=== PATIENT | male | born 1945 | race Hispanic/Latino ===

== ENCOUNTER 2019-10-28 10:28 | Inpatient (IN) | payer OTHER ==
[~2019-10-28] VITALS: Ht 172.7 cm; Wt 85.7 kg
[2019-10-28 11:06] LABS: BASOPHILS % (AUTO) 0.2 % (0.0-5.0); EOSINOPHILS % (AUTO) 0.9 % (0.0-8.0); LYMPHOCYTES % (AUTO) 10.7 % (21.0-51.0); MEAN CORPUSCULAR HEMOGLOBIN 33.3 pg (27.0-33.0); MEAN CORPUSCULAR HGB CONC 32.2 g/dL (32.0-36.0); MEAN CORPUSCULAR VOLUME 103.6 fL (79-99); MONOCYTES % (AUTO) 2.9 % (3.0-13.0); NEUTROPHILS % (AUTO) 84.8 % (40.0-77.0); PLATELET COUNT (AUTO) 63 K/uL (130-400); RED BLOOD CELL COUNT(AUTO) 2.22 MIL/uL (4.50-6.20); RED CELL DISTRIBUTION WIDTH 15.3 % (11.0-15.5); WHITE BLOOD COUNT (AUTO) 11.8 K/uL (4.8-10.8)
[2019-10-28] MEDS ORDERED: ONDANSETRON HCL 4 MG/2 ML VIAL ONE (11:36)
[2019-10-28 11:46] LABS: B-TYPE NATRIURETIC PEPTIDE 970 pg/mL (0-100)
[2019-10-28 11:51] LABS: ABG BASE EXCESS -3.2 mmol/L (-2.0-3.0); ABG HCO3 21.7 mmol/L (21.0-28.0); ABG OXYGEN SATURATION 93.3 % (95.0-99.0); ABG PCO2 39 mmHg (35-48)
[2019-10-28 12:01] LABS: INR 1.12 (0.85-1.15); PARTIAL THROMBOPLASTIN TIME 32.4 SEC (26.3-35.5)
[2019-10-28] MEDS ORDERED: NOREPINEPHRINE 4MG/NS 250ML 250 ML IV ONE ×5 (12:16→21:44)
[2019-10-28] MEDS ORDERED: MIDAZOLAM HCL 1 MG/ML 2ML VIAL ONE (12:32)
[2019-10-28 12:39] LABS: ALBUMIN 1.8 g/dL (3.5-5.0); BILIRUBIN,DIRECT 0.3 mg/dL (0.0-0.3); BILIRUBIN,TOTAL 0.5 mg/dL (0.2-1.0); CREATININE 1.6 mg/dL (0.5-1.5); POTASSIUM 5.9 mmol/L (3.5-5.1); TOTAL PROTEIN, SERUM 7.2 g/dL (6.0-8.3)
[2019-10-28 13:13] LABS: MAGNESIUM 2.8 mg/dL (1.80-2.40)
[2019-10-28] MEDS ORDERED: ACETAMINOPHEN 325 MG TAB PO PRN ×2 (17:30)
[2019-10-28] MEDS ORDERED: ONDANSETRON HCL 4 MG/2 ML VIAL IV PRN (17:30)
[2019-10-28] MEDS: AZITHROMYCIN 500MG+NS 250ML 250 ML IV SCH (17:30)
[2019-10-28] MEDS: CEFTRIAXONE SODIUM 1 GM IV SCH (17:30)
[2019-10-28] MEDS ORDERED: SODIUM POLYSTYRENE SULFONATE 15 GM/60 ML ML GT SCH (18:00)
[2019-10-28] MEDS: HYDROCORTISONE SOD SUCCINATE 100 MG/2 ML VIAL IV SCH (18:30)
[2019-10-28] MEDS: MIDODRINE HCL 5 MG TABLET PO SCH (18:30)
[2019-10-28] MEDS ORDERED: LACTATED RINGERS 1000ML IV SCH (18:30)
[2019-10-28] MEDS ORDERED: HYDROCORTISONE SOD SUCCINATE 100 MG/2 ML VIAL ONE (20:14)
[2019-10-28] MEDS ORDERED: ZOSYN 3.375GM+NS 50ML 50 ML IV SCH (21:00)
[2019-10-28 21:04] LABS: ALBUMIN 1.6 g/dL (3.5-5.0); BILIRUBIN,TOTAL 0.6 mg/dL (0.2-1.0); MAGNESIUM 2.6 mg/dL (1.80-2.40); POTASSIUM 5.8 mmol/L (3.5-5.1); THYROID STIMULATING HORMONE 7.11 uIU/mL (0.36-3.74); TOTAL PROTEIN, SERUM 7.1 g/dL (6.0-8.3)
[2019-10-28] MEDS ORDERED: FAMOTIDINE/PF 20 MG/2 ML VIAL IV ONE (22:40)
[2019-10-28] MEDS ORDERED: MEROPENEM 500 MG VIAL ONE (22:40)
[2019-10-28] MEDS ORDERED: MEROPENEM 1 GM VIAL IVP SCH (23:00)
[2019-10-29] VITALS (28 sets, daily range): BP systolic 86–150; BP diastolic 37–91
[2019-10-29] MEDS: HYDROCORTISONE SOD SUCCINATE 100 MG/2 ML VIAL IV SCH ×4 (00:30→18:46)
--- NOTE | 2019-10-29 02:20 | NUR ---
DR LIRA ORDERS TO HOLD NASAL TRACHEAL SUCTIONING UNTIL PATIENT STABILIZES. Addendum: 10/29/19 at 0455 by THOMAS VALDEZ RTSLT Amended: Links added.
[2019-10-29] MEDS: MIDODRINE HCL 5 MG TABLET PO SCH ×3 (02:30→18:30)
[2019-10-29 02:31] LABS: ABG BASE EXCESS -21.2 mmol/L (-2.0-3.0); ABG HCO3 11.4 mmol/L (21.0-28.0); ABG OXYGEN SATURATION 83.2 % (95.0-99.0); ABG PCO2 54 mmHg (35-48)
[2019-10-29] MEDS ORDERED: SODIUM BICARB 50MEQ 50ML VIAL ONE ×2 (02:38→07:20)
[2019-10-29 02:45] LABS: CREATININE 2.5 mg/dL (0.5-1.5); MAGNESIUM 2.6 mg/dL (1.80-2.40)
[2019-10-29 02:58] LABS: POTASSIUM 6.9 mmol/L (3.5-5.1); TROPONIN I 0.23 ng/mL (0.00-0.06)
[2019-10-29] MEDS ORDERED: DEXTROSE 50%-WATER 50 ML DISP.SYRIN IV ONE ×2 (03:01→07:18)
[2019-10-29] MEDS ORDERED: INSULIN HUMULIN R 100 UNIT/ML 3ML ONE ×2 (03:02→07:19)
[2019-10-29] MEDS: CALCIUM CHLORIDE 100 MG/ML 10 ML SYG IVP SCH (03:15)
[2019-10-29] MEDS: DEXTROSE 50%-WATER 25 GM/50 ML VIAL IV SCH (03:15)
[2019-10-29] MEDS: INSULIN HUMULIN R 100 UNIT/ML 3ML SQ SCH (03:15)
[2019-10-29] MEDS ORDERED: NOREPINEPHRINE BITARTRATE 1 MG/1 ML ML IV ONE ×2 (05:03→13:04)
[2019-10-29] MEDS ORDERED: SODIUM CHLORIDE 0.9% 250 ML IV ONE ×3 (05:04→19:58)
[2019-10-29] MEDS ORDERED: ZOSYN 3.375GM+NS 50ML 50 ML IV ONE (05:46)
[2019-10-29 05:50] LABS: ABG BASE EXCESS -12.8 mmol/L (-2.0-3.0); ABG HCO3 14.6 mmol/L (21.0-28.0); ABG OXYGEN SATURATION 98.8 % (95.0-99.0); ABG PCO2 39 mmHg (35-48)
[2019-10-29 06:23] LABS: BASOPHILS % (AUTO) 0.1 % (0.0-5.0); LYMPHOCYTES % (AUTO) 8.2 % (21.0-51.0); MEAN CORPUSCULAR HEMOGLOBIN 34.1 pg (27.0-33.0); MEAN CORPUSCULAR HGB CONC 30.4 g/dL (32.0-36.0); MEAN CORPUSCULAR VOLUME 112.1 fL (79-99); MONOCYTES % (AUTO) 7.1 % (3.0-13.0); NEUTROPHILS % (AUTO) 83.6 % (40.0-77.0); NUCLEATED RED BLOOD CELLS 0.4 % (0.0-0.19); PLATELET COUNT (AUTO) 115 K/uL (130-400); RED BLOOD CELL COUNT(AUTO) 1.82 MIL/uL (4.50-6.20); RED CELL DISTRIBUTION WIDTH 16.2 % (11.0-15.5); WHITE BLOOD COUNT (AUTO) 15.2 K/uL (4.8-10.8)
[2019-10-29 06:24] LABS: HEMATOCRIT 20.4 % (42-54)
[2019-10-29 06:52] LABS: ALBUMIN 1.5 g/dL (3.5-5.0); BILIRUBIN,TOTAL 0.6 mg/dL (0.2-1.0); CREATININE 2.7 mg/dL (0.5-1.5); THYROID STIMULATING HORMONE 8.04 uIU/mL (0.36-3.74); TOTAL PROTEIN, SERUM 7.2 g/dL (6.0-8.3)
[2019-10-29 06:54] LABS: POTASSIUM 6.8 mmol/L (3.5-5.1)
[2019-10-29 07:34] LABS: CRP QUANTITATIVE 222.5 mg/L (0.00-9.0)
[2019-10-29] MEDS ORDERED: HYDROCORTISONE SOD SUCCINATE 100 MG/2 ML VIAL ONE (08:57)
[2019-10-29] MEDS ORDERED: SODIUM ZIRCONIUM CYCLOSILICATE 10 GM POWD.PACK PO SCH (09:00)
[2019-10-29] MEDS: FAMOTIDINE/PF 20 MG/2 ML VIAL IV SCH (09:00)
[2019-10-29] MEDS: ZOSYN 3.375GM+NS 50ML 50 ML IV SCH ×2 (09:00→20:08)
[2019-10-29] MEDS ORDERED: FUROSEMIDE 10 MG/ML 4ML VIAL IV SCH (09:15)
[2019-10-29] MEDS ORDERED: FAMOTIDINE/PF 20 MG/2 ML VIAL IV ONE (10:02)
[2019-10-29] MEDS ORDERED: LIDOCAINE HCL 1% MDV 50ML VIAL ONE (12:30)
--- NOTE | 2019-10-29 12:54 | NUR ---
RD NOTIFICATION Tube Feeding Recommendation: Nepro initiated at 15mls/hr. Goal rate: 45mls/hr Recommend Flush 100ml Q6hrs. Recommendations faxed to ext [phone], Rail Project Engineer notified. NUTRITION NOTE: Pt admitted with AMS, Bradycardia. Pending COVID test result per EMR. Elevated WBC, elevated serum potassium. S/p Peg placement. S/p Hemodialysis per EMR. Recommend 1000mg Vitamin C (IV Equivalent) Daily, as medically feasible. RD to continue to monitor. Please notify as additional nutrition concerns arise. Thank you.
--- NOTE | 2019-10-29 13:00 | NUR ---
CALL TO SPOUSE'S PHONE, SON & SPOUSE TOGETHER ON CONFERENCE CALL. BOTH STATE THAT PATIENT HAD A STROKE AT THE BEGINNING OF THE YEAR, AND WAS SENT TO LIVE AT [facility]. HAS BEEN BED BOUND AND APHASIC EVER SINCE. HAS A PEG, NOT ABLE TO MAKE HIS NEEDS KNOWN. VERBALIZES UNDERSTANDING THAT PATIENT IS VERY VERY ILL, STATES HE IS A FULL CODE & THEY ARE STARTING HD TODAY. DC PLAN BACK TO [facility] WHEN STABLE. Addendum: 10/29/19 at 1522 by GABBY AUGUST RN CM Amended: Links added.
--- NOTE | 2019-10-29 15:00 | NUR ---
RECEIVED PT FROM SOURCING MANAGER. PT ARRIVED TO UNIT VIA BED ACCOMPANIED BY RT AND SOURCING MANAGER NURSE. PT HOOKED UP TO ICU MONITORS. PT NOTED TO BY STABLE AT THIS TIME. WILL CONT TO MONITOR.
[2019-10-29] MEDS ORDERED: PHARMACY COMMUNICATION MISC SCH (15:15)
[2019-10-29] MEDS ORDERED: MIDAZOLAM 50MG-0.9% NS 50ML 50 ML BAG IV SCH (15:30)
[2019-10-29] MEDS ORDERED: MIDAZOLAM 50MG-0.9% NS 50ML 50 ML IV SCH (16:15)
[2019-10-29] MEDS: CEFTRIAXONE SODIUM 1 GM IV SCH (16:57)
[2019-10-29] MEDS: AZITHROMYCIN 500MG+NS 250ML 250 ML IV SCH (16:58)
[2019-10-29] MEDS: PHARMACY COMMUNICATION MISC SCH ×2 (19:15→22:15)
[2019-10-29] MEDS ORDERED: NOREPINEPHRINE 4MG/NS 250ML 250 ML IV ONE (19:56)
[2019-10-29] MEDS: LACTULOSE 20 GM/30 ML UDCUP PO SCH (20:08)
[2019-10-29] MEDS ORDERED: ACETAMINOPHEN ELIXIR 650 MG/20.3 ML UDCUP PEG PRN (22:00)
[2019-10-30] VITALS (71 sets, daily range): BP systolic 105–159; BP diastolic 49–89
[2019-10-30] MEDS: MIDODRINE HCL 5 MG TABLET PO SCH ×2 (01:26→10:15)
[2019-10-30] MEDS: HYDROCORTISONE SOD SUCCINATE 100 MG/2 ML VIAL IV SCH ×4 (01:26→17:57)
[2019-10-30] MEDS ORDERED: PETR113O TP (02:34)
[2019-10-30] MEDS ORDERED: NYST5ORA7 PO (02:34)
[2019-10-30] MEDS: INSULIN HUMULIN R 100 UNIT/ML 3ML SQ SCH (03:15)
[2019-10-30] MEDS: DEXTROSE 50%-WATER 25 GM/50 ML VIAL IV SCH (03:15)
[2019-10-30] MEDS: CALCIUM CHLORIDE 100 MG/ML 10 ML SYG IVP SCH (03:15)
[2019-10-30] MEDS ORDERED: BISA10SU11 RC (03:26)
[2019-10-30] MEDS ORDERED: LACT10SO9 PO (03:26)
[2019-10-30] MEDS ORDERED: CYAN250014 PO (03:26)
[2019-10-30] MEDS ORDERED: FURO20TA4 PO (03:26)
[2019-10-30] MEDS ORDERED: DOCU60SY6 PO (03:26)
[2019-10-30] MEDS ORDERED: AMLO10TA7 PO (03:26)
[2019-10-30] MEDS ORDERED: LEVE500V8 IV (03:26)
[2019-10-30] MEDS ORDERED: LISI10TA7 PO (03:26)
[2019-10-30] MEDS ORDERED: VASOPRESSIN 20 UNITS/ML 1ML VIAL ONE (03:30)
[2019-10-30] MEDS ORDERED: SODIUM CHLORIDE 0.9% 100 ML IV ONE (03:36)
[2019-10-30 03:56] LABS: BASOPHILS % (AUTO) 0.3 % (0.0-5.0); EOSINOPHILS % (AUTO) 0.3 % (0.0-8.0); HEMATOCRIT 25.5 % (42-54); LYMPHOCYTES % (AUTO) 10.3 % (21.0-51.0); MEAN CORPUSCULAR HEMOGLOBIN 31.7 pg (27.0-33.0); MEAN CORPUSCULAR HGB CONC 32.2 g/dL (32.0-36.0); MEAN CORPUSCULAR VOLUME 98.5 fL (79-99); NEUTROPHILS % (AUTO) 84.6 % (40.0-77.0); NUCLEATED RED BLOOD CELLS 0.3 % (0.0-0.19); PLATELET COUNT (AUTO) 85 K/uL (130-400); RED BLOOD CELL COUNT(AUTO) 2.59 MIL/uL (4.50-6.20); RED CELL DISTRIBUTION WIDTH 19.9 % (11.0-15.5); WHITE BLOOD COUNT (AUTO) 11.7 K/uL (4.8-10.8)
[2019-10-30] MEDS: PHARMACY COMMUNICATION MISC SCH ×8 (04:15→22:15)
[2019-10-30 04:31] LABS: ALBUMIN 1.6 g/dL (3.5-5.0); BILIRUBIN,TOTAL 0.9 mg/dL (0.2-1.0); CREATININE 2.7 mg/dL (0.5-1.5); MAGNESIUM 2.5 mg/dL (1.80-2.40); POTASSIUM 4.4 mmol/L (3.5-5.1); TOTAL PROTEIN, SERUM 7.2 g/dL (6.0-8.3)
[2019-10-30] MEDS: VASOPRESSIN 20 UNITS in SODIUM CHLORIDE 0.9% 100 ML IV SCH ×2 (05:06→12:55)
[2019-10-30 05:18] LABS: % IRON SATURATION 28.6 % (30-44)
[2019-10-30] MEDS ORDERED: MEROPENEM 1 GM VIAL IVP SCH (08:00)
[2019-10-30] MEDS: FAMOTIDINE/PF 20 MG/2 ML VIAL IV SCH (08:12)
[2019-10-30] MEDS: LACTULOSE 20 GM/30 ML UDCUP PO SCH ×2 (08:12→20:59)
[2019-10-30] MEDS: ZOSYN 3.375GM+NS 50ML 50 ML IV SCH (08:13)
[2019-10-30 08:24] LABS: CRP QUANTITATIVE 282.8 mg/L (0.00-9.0)
[2019-10-30 08:42] LABS: ABG BASE EXCESS -4.4 mmol/L (-2.0-3.0); ABG HCO3 19.2 mmol/L (21.0-28.0); ABG OXYGEN SATURATION 99.2 % (95.0-99.0); ABG PCO2 32 mmHg (35-48)
--- NOTE | 2019-10-30 09:16 | NUR ---
CHART CHECK COMPLETED. Pt IS A 74 Y.O. MALE ADMITTED SECONDARY TO AMS AND BRADYCARDIA. Pt HAS A PAST MEDICAL HISTORY SIGNIFICANT FOR ANEMIA,DM,CORONARY ATHEROSCLEROSIS,SEIZURE,GERD,TRANSIENT CEREBRAL ISCHEMIA, DYSPHAGIA S/P PEG, APHASIA, DEMENTIA. Pt CURRENTLY NPO AND INTUBATED S/P CATH. SKILLED SPEECH THERAPY IS NOT RECOMMENDED AT THIS TIME DUE TO LONG-STANDING DYSPHAGIA AND APHASIA HISTORY. Addendum: 10/30/19 at 0922 by SAUL GOSS [facility] Amended: Links added.
--- NOTE | 2019-10-30 09:20 | NUR ---
DR CHUN CONSULTED DR CHUN RECONSULTED/CONSULTED FOR THIS PATIENT; MD IS AWARE; NO NEW ORDERS AT THIS TIME
--- NOTE | 2019-10-30 10:20 | NUR ---
FAMILY UPDATED DR WILLINGHAM AT BEDSIDE AND CALLED PATIENT'S VIA TELEPHONE; PATIENT'S AND SON UPDATED ON PATIENT STATUS AND PROGNOSIS BY DR WILLINGHAM; FAMILY WISHES TO KEEP PATIENT FULL CODE AT THIS TIME; ALL QUESTIONS ANSWERED BY DR WILLINGHAM
[2019-10-30] MEDS ORDERED: PHARMACY COMMUNICATION MISC SCH (11:15)
[2019-10-30] MEDS ORDERED: FENTANYL CITRATE PF 0.05 MG/ML 1,000 MCG in SODIUM CHLORIDE 0.9% 100 ML IVPB SCH (11:30)
[2019-10-30] MEDS ORDERED: COMPOUND IV REFRIGERATED 1 EACH IVSOLN MISC PRN (12:45)
[2019-10-30] MEDS: VANCOMYCIN 1GM+NS 250ML 250 ML IV SCH (12:57)
[2019-10-30] MEDS: FENTANYL 2500MCG+NS 250ML 250 ML IV PRN (14:04)
[2019-10-30] MEDS: NOREPINEPHRINE 4MG/NS 250ML 250 ML IV SCH (15:06)
[2019-10-30] MEDS: MEROPENEM 1 GM VIAL IVP SCH (21:00)
[2019-10-31] VITALS (46 sets, daily range): BP systolic 95–143; BP diastolic 43–73
[2019-10-31] MEDS: PHARMACY COMMUNICATION MISC SCH (01:15)
[2019-10-31] MEDS: CALCIUM CHLORIDE 100 MG/ML 10 ML SYG IVP SCH (03:15)
[2019-10-31] MEDS: INSULIN HUMULIN R 100 UNIT/ML 3ML SQ SCH (03:15)
[2019-10-31] MEDS: DEXTROSE 50%-WATER 25 GM/50 ML VIAL IV SCH (03:15)
[2019-10-31 04:05] LABS: CREATININE,URINE RANDOM 48 mg/dL (30-135); SODIUM,URINE RANDOM 25 mmol/l (40-220)
[2019-10-31] MEDS: HYDROCORTISONE SOD SUCCINATE 100 MG/2 ML VIAL IV SCH ×4 (05:19→18:09)
[2019-10-31 07:26] LABS: BASOPHILS % (AUTO) 0.2 % (0.0-5.0); HEMATOCRIT 24.7 % (42-54); LYMPHOCYTES % (AUTO) 16.4 % (21.0-51.0); MEAN CORPUSCULAR HEMOGLOBIN 32.1 pg (27.0-33.0); MEAN CORPUSCULAR HGB CONC 32.4 g/dL (32.0-36.0); MEAN CORPUSCULAR VOLUME 99.2 fL (79-99); MONOCYTES % (AUTO) 5.4 % (3.0-13.0); NEUTROPHILS % (AUTO) 77.5 % (40.0-77.0); NUCLEATED RED BLOOD CELLS 0.2 % (0.0-0.19); PLATELET COUNT (AUTO) 58 K/uL (130-400); RED BLOOD CELL COUNT(AUTO) 2.49 MIL/uL (4.50-6.20); WHITE BLOOD COUNT (AUTO) 9.4 K/uL (4.8-10.8)
[2019-10-31 07:39] LABS: ALBUMIN 1.3 g/dL (3.5-5.0); BILIRUBIN,TOTAL 0.5 mg/dL (0.2-1.0); CREATININE 2.4 mg/dL (0.5-1.5); MAGNESIUM 2.7 mg/dL (1.80-2.40); PHOSPHORUS 5.2 mg/dL (2.5-4.9); POTASSIUM 3.9 mmol/L (3.5-5.1); TOTAL PROTEIN, SERUM 6.8 g/dL (6.0-8.3)
[2019-10-31 08:22] LABS: CRP QUANTITATIVE 316.8 mg/L (0.00-9.0)
[2019-10-31] MEDS: FAMOTIDINE/PF 20 MG/2 ML VIAL IV SCH (08:48)
[2019-10-31] MEDS: MEROPENEM 1 GM VIAL IVP SCH ×2 (08:48→20:24)
[2019-10-31] MEDS ORDERED: LACTULOSE 20 GM/30 ML UDCUP PO PRN (09:00)
[2019-10-31] MEDS: VANCOMYCIN 750MG + NS 250 ML IV SCH ×2 (09:02)
[2019-10-31] MEDS: VANCOMYCIN 1GM+NS 250ML 250 ML IV SCH (12:02)
[2019-10-31 18:05] LABS: BASOPHILS % (AUTO) 0.3 % (0.0-5.0); HEMATOCRIT 22.3 % (42-54); LYMPHOCYTES % (AUTO) 15.6 % (21.0-51.0); MEAN CORPUSCULAR HEMOGLOBIN 31.6 pg (27.0-33.0); MEAN CORPUSCULAR HGB CONC 31.8 g/dL (32.0-36.0); MEAN CORPUSCULAR VOLUME 99.1 fL (79-99); MONOCYTES % (AUTO) 4.6 % (3.0-13.0); NEUTROPHILS % (AUTO) 78.7 % (40.0-77.0); NUCLEATED RED BLOOD CELLS 0.3 % (0.0-0.19); PLATELET COUNT (AUTO) 43 K/uL (130-400); RED BLOOD CELL COUNT(AUTO) 2.25 MIL/uL (4.50-6.20); RED CELL DISTRIBUTION WIDTH 21.9 % (11.0-15.5); WHITE BLOOD COUNT (AUTO) 7.8 K/uL (4.8-10.8)
[2019-11-01] VITALS (61 sets, daily range): BP systolic 77–155; BP diastolic 38–80
[2019-11-01] MEDS: HYDROCORTISONE SOD SUCCINATE 100 MG/2 ML VIAL IV SCH ×4 (01:41→18:05)
[2019-11-01] MEDS: CALCIUM CHLORIDE 100 MG/ML 10 ML SYG IVP SCH (03:15)
[2019-11-01] MEDS: INSULIN HUMULIN R 100 UNIT/ML 3ML SQ SCH (03:15)
[2019-11-01] MEDS: DEXTROSE 50%-WATER 25 GM/50 ML VIAL IV SCH (03:15)
[2019-11-01 03:53] LABS: BASOPHILS % (AUTO) 0.1 % (0.0-5.0); HEMATOCRIT 23.9 % (42-54); MEAN CORPUSCULAR HGB CONC 32.2 g/dL (32.0-36.0); MEAN CORPUSCULAR VOLUME 99.2 fL (79-99); MONOCYTES % (AUTO) 3.9 % (3.0-13.0); NEUTROPHILS % (AUTO) 76.2 % (40.0-77.0); NUCLEATED RED BLOOD CELLS 0.4 % (0.0-0.19); PLATELET COUNT (AUTO) 43 K/uL (130-400); RED BLOOD CELL COUNT(AUTO) 2.41 MIL/uL (4.50-6.20); RED CELL DISTRIBUTION WIDTH 21.7 % (11.0-15.5)
[2019-11-01 04:28] LABS: ALBUMIN 1.4 g/dL (3.5-5.0); BILIRUBIN,TOTAL 0.5 mg/dL (0.2-1.0); CREATININE 2.2 mg/dL (0.5-1.5); POTASSIUM 3.9 mmol/L (3.5-5.1); TOTAL PROTEIN, SERUM 6.7 g/dL (6.0-8.3)
[2019-11-01 04:57] LABS: CRP QUANTITATIVE 307.8 mg/L (0.00-9.0)
[2019-11-01] MEDS: MEROPENEM 1 GM VIAL IVP SCH ×2 (08:43→20:49)
[2019-11-01] MEDS: FAMOTIDINE/PF 20 MG/2 ML VIAL IV SCH (08:43)
[2019-11-01] MEDS: VANCOMYCIN 750MG + NS 250 ML IV SCH ×2 (09:29)
[2019-11-01] MEDS: DEXTROSE 5%-WATER 2,000 ML IV SCH (10:45)
[2019-11-01] MEDS: VANCOMYCIN 1GM+NS 250ML 250 ML IV SCH (11:35)
[2019-11-01] MEDS ORDERED: DEXTROSE 5%-WATER 1,000 ML IV ONE (14:50)
[2019-11-01 15:58] LABS: ABG BASE EXCESS -5.1 mmol/L (-2.0-3.0); ABG HCO3 19.7 mmol/L (21.0-28.0); ABG OXYGEN SATURATION 84.5 % (95.0-99.0); ABG PCO2 36 mmHg (35-48)
[2019-11-01] MEDS: NOREPINEPHRINE 4MG/NS 250ML 250 ML IV SCH (16:01)
--- NOTE | 2019-11-01 16:19 | NUR ---
RD UPDATE/FOLLOW UP Notification for Tube Feeding Recommendations received. Recs provided 10/29/19 when Pt was in the ED. Faxed recommendations to Sam RN notified. Please notify as additional nutrition concerns arise. Thank you.
--- NOTE | 2019-11-01 18:31 | NUR ---
OXYGENTATION & BLOOD PRESSURE PT WAS DECLINING O2 STATUS MD NOTIFIED ABG ORDERED WITH CXR. RT NOTIFIED AND ADVANCE ETT TUBE BY 3CM. LEVOPHED WAS STARTED PT BECAME HYPOTENSIVE SBP 70'S. SOLAR BUSINESS DEVELOPER CALLED SEE DOCUMENTATION. ONCE STABLE PT WAS PLACED IN A PRONE POSITION AND NOW HEMODYNAMICALLY STABLE WITH PRESSORS TURNED OFF AND O2 SATURATIONS 95-98%
[2019-11-02] VITALS (47 sets, daily range): BP systolic 91–155; BP diastolic 46–74
[2019-11-02] MEDS: HYDROCORTISONE SOD SUCCINATE 100 MG/2 ML VIAL IV SCH ×5 (03:12→18:18)
[2019-11-02] MEDS: DEXTROSE 5%-WATER 2,000 ML IV SCH (03:12)
[2019-11-02] MEDS ORDERED: PROPOFOL 1000 MG/100 ML IV PRN (07:45)
[2019-11-02] MEDS ORDERED: SODIUM CHLORIDE 0.9% 500ML 500 ML IV PRN (07:45)
[2019-11-02 08:00] LABS: HEMATOCRIT 24.9 % (42-54); MEAN CORPUSCULAR HEMOGLOBIN 32.3 pg (27.0-33.0); MEAN CORPUSCULAR HGB CONC 32.1 g/dL (32.0-36.0); MEAN CORPUSCULAR VOLUME 100.4 fL (79-99); NUCLEATED RED BLOOD CELLS 0.7 % (0.0-0.19); RED BLOOD CELL COUNT(AUTO) 2.48 MIL/uL (4.50-6.20); RED CELL DISTRIBUTION WIDTH 21.2 % (11.0-15.5); WHITE BLOOD COUNT (AUTO) 14.1 K/uL (4.8-10.8)
[2019-11-02 08:12] LABS: CREATININE 1.9 mg/dL (0.5-1.5); MAGNESIUM 2.5 mg/dL (1.80-2.40); PHOSPHORUS 3.7 mg/dL (2.5-4.9); POTASSIUM 3.6 mmol/L (3.5-5.1)
[2019-11-02] MEDS: MEROPENEM 1 GM VIAL IVP SCH ×2 (08:19→20:36)
[2019-11-02] MEDS: MIDAZOLAM 50MG-0.9% NS 50ML 50 ML BAG IV SCH ×2 (08:21→20:36)
[2019-11-02] MEDS: PANTOPRAZOLE 40 MG/VIAL IVP SCH (08:35)
[2019-11-02] MEDS: VANCOMYCIN 750MG + NS 250 ML IV SCH ×2 (08:36)
[2019-11-02 10:11] LABS: ABG BASE EXCESS -3.5 mmol/L (-2.0-3.0); ABG OXYGEN SATURATION 97.9 % (95.0-99.0); ABG PCO2 32 mmHg (35-48)
[2019-11-02] MEDS: VANCOMYCIN 1GM+NS 250ML 250 ML IV SCH (12:45)
[2019-11-02] MEDS ORDERED: POTASSIUM CHLORIDE 20 MEQ ERTAB PO PRN (16:30)
[2019-11-02] MEDS ORDERED: LIDOCAINE HCL-MPF 1% 2ML VIAL IV PRN (16:30)
[2019-11-02] MEDS ORDERED: POTASSIUM CHLORIDE 10% ELIXIR 20 MEQ/15 ML UDCUP PO PRN (16:30)
[2019-11-02] MEDS ORDERED: POTASSIUM CHLORIDE 10MEQ/100ML 100 ML IV PRN (16:30)
[2019-11-02] MEDS ORDERED: MAGNESIUM 2GM PREMIX 50ML 50 ML IV PRN (16:30)
--- NOTE | 2019-11-02 18:19 | NUR ---
PRONE PT PLACEDIN A PRONE POSITION TOLERATING WELL
[2019-11-03] VITALS (142 sets, daily range): BP systolic 62–162; BP diastolic 26–77
[2019-11-03] MEDS: HYDROCORTISONE SOD SUCCINATE 100 MG/2 ML VIAL IV SCH ×4 (00:55→17:09)
[2019-11-03 04:41] LABS: BASOPHILS % (AUTO) 0.2 % (0.0-5.0); HEMATOCRIT 27.3 % (42-54); LYMPHOCYTES % (AUTO) 9.5 % (21.0-51.0); MEAN CORPUSCULAR HGB CONC 32.2 g/dL (32.0-36.0); MEAN CORPUSCULAR VOLUME 99.3 fL (79-99); MONOCYTES % (AUTO) 1.3 % (3.0-13.0); NEUTROPHILS % (AUTO) 86.9 % (40.0-77.0); NUCLEATED RED BLOOD CELLS 0.4 % (0.0-0.19); PLATELET COUNT (AUTO) 21 K/uL (130-400); RED BLOOD CELL COUNT(AUTO) 2.75 MIL/uL (4.50-6.20); WHITE BLOOD COUNT (AUTO) 16.4 K/uL (4.8-10.8)
[2019-11-03 04:45] LABS: ALBUMIN 1.1 g/dL (3.5-5.0); BILIRUBIN,TOTAL 0.7 mg/dL (0.2-1.0); CREATININE 1.4 mg/dL (0.5-1.5); POTASSIUM 3.4 mmol/L (3.5-5.1); TOTAL PROTEIN, SERUM 6.2 g/dL (6.0-8.3)
[2019-11-03 04:52] LABS: CRP QUANTITATIVE 293.7 mg/L (0.00-9.0)
[2019-11-03 05:17] LABS: % IRON SATURATION 13.8 % (30-44)
[2019-11-03] MEDS: DEXTROSE 5%-WATER 2,000 ML IV SCH (06:45)
[2019-11-03] MEDS: PANTOPRAZOLE 40 MG/VIAL IVP SCH (10:08)
[2019-11-03] MEDS: MEROPENEM 1 GM VIAL IVP SCH ×2 (10:08→21:36)
[2019-11-03] MEDS: VANCOMYCIN 750MG + NS 250 ML IV SCH ×2 (10:10)
[2019-11-03] MEDS: VANCOMYCIN 1GM+NS 250ML 250 ML IV SCH (11:39)
[2019-11-03 12:44] LABS: ABG BASE EXCESS -4.4 mmol/L (-2.0-3.0); ABG HCO3 20.7 mmol/L (21.0-28.0); ABG OXYGEN SATURATION 88.8 % (95.0-99.0); ABG PCO2 39 mmHg (35-48)
--- NOTE | 2019-11-03 15:12 | NUR ---
LOW CVP PT CVP 4-6. 500CC BOLUS GIVEN. NEW CVP 8-9. PT NOW ON VASO AND LEVO TO MAINTAIN BP. SB ON THE MONITOR. PT NOT NOW SUPINE POSITION. FAMILY UPDATED TODAY BY PRIMARY RN
[2019-11-03] MEDS ORDERED: MIDAZOLAM HCL 1 MG/ML 2ML VIAL IVP STA (16:19)
[2019-11-03] MEDS ORDERED: MIDAZOLAM HCL 1 MG/ML 2ML VIAL ONE (16:26)
[2019-11-03] MEDS ORDERED: MIDAZOLAM HCL 1 MG/ML 2ML VIAL IVP ONE (16:30)
[2019-11-03] MEDS: MIDAZOLAM 50MG-0.9% NS 50ML 50 ML BAG IV SCH (17:13)
[2019-11-03] MEDS: SULFAMETHOX-TMP DS 800/160 TAB PEG SCH (21:37)
[2019-11-04] VITALS (47 sets, daily range): BP systolic 68–144; BP diastolic 32–72
[2019-11-04] MEDS ORDERED: FUROSEMIDE 10 MG/ML 2ML VIAL IV SCH (00:15)
[2019-11-04] MEDS: MIDAZOLAM 50MG-0.9% NS 50ML 50 ML BAG IV SCH ×3 (00:18→12:20)
[2019-11-04] MEDS: HYDROCORTISONE SOD SUCCINATE 100 MG/2 ML VIAL IV SCH ×3 (00:18→12:19)
[2019-11-04 00:20] LABS: ABG BASE EXCESS -4.7 mmol/L (-2.0-3.0); ABG HCO3 21.4 mmol/L (21.0-28.0); ABG OXYGEN SATURATION 83.5 % (95.0-99.0); ABG PCO2 43 mmHg (35-48)
[2019-11-04] MEDS: DEXTROSE 5%-WATER 2,000 ML IV SCH (02:45)
[2019-11-04 05:30] LABS: HEMATOCRIT 29.4 % (42-54); MEAN CORPUSCULAR HEMOGLOBIN 31.5 pg (27.0-33.0); MEAN CORPUSCULAR VOLUME 101.7 fL (79-99); NUCLEATED RED BLOOD CELLS 0.6 % (0.0-0.19); RED BLOOD CELL COUNT(AUTO) 2.89 MIL/uL (4.50-6.20); RED CELL DISTRIBUTION WIDTH 20.9 % (11.0-15.5); WHITE BLOOD COUNT (AUTO) 23.5 K/uL (4.8-10.8)
[2019-11-04 05:52] LABS: ALBUMIN 1.1 g/dL (3.5-5.0); BILIRUBIN,TOTAL 0.6 mg/dL (0.2-1.0); CREATININE 1.3 mg/dL (0.5-1.5); MAGNESIUM 2.6 mg/dL (1.80-2.40); PHOSPHORUS 4.6 mg/dL (2.5-4.9); POTASSIUM 3.8 mmol/L (3.5-5.1)
[2019-11-04] MEDS: VANCOMYCIN 750MG + NS 250 ML IV SCH ×2 (08:58)
[2019-11-04] MEDS: SULFAMETHOX-TMP DS 800/160 TAB PEG SCH (08:58)
[2019-11-04] MEDS: PANTOPRAZOLE 40 MG/VIAL IVP SCH (09:52)
[2019-11-04] MEDS: MEROPENEM 1 GM VIAL IVP SCH (09:52)
[2019-11-04] MEDS: NOREPINEPHRINE 4MG/NS 250ML 250 ML IV SCH (09:55)
[2019-11-05] VITALS (44 sets, daily range): BP systolic 91–160; BP diastolic 38–67
[2019-11-05] MEDS: SULFAMETHOX-TMP DS 800/160 TAB PEG SCH ×3 (00:16→20:51)
[2019-11-05] MEDS: MEROPENEM 1 GM VIAL IVP SCH ×3 (00:16→20:51)
[2019-11-05] MEDS: HYDROCORTISONE SOD SUCCINATE 100 MG/2 ML VIAL IV SCH ×5 (00:19→21:05)
[2019-11-05 03:48] LABS: ABG HCO3 20.6 mmol/L (21.0-28.0); ABG OXYGEN SATURATION 83.4 % (95.0-99.0); ABG PCO2 40 mmHg (35-48)
[2019-11-05 05:43] LABS: BASOPHILS % (AUTO) 0.2 % (0.0-5.0); HEMATOCRIT 30.1 % (42-54); LYMPHOCYTES % (AUTO) 6.8 % (21.0-51.0); MEAN CORPUSCULAR HEMOGLOBIN 31.5 pg (27.0-33.0); MEAN CORPUSCULAR HGB CONC 30.9 g/dL (32.0-36.0); MONOCYTES % (AUTO) 1.5 % (3.0-13.0); NEUTROPHILS % (AUTO) 89.5 % (40.0-77.0); NUCLEATED RED BLOOD CELLS 0.5 % (0.0-0.19); PLATELET COUNT (AUTO) 30 K/uL (130-400); RED BLOOD CELL COUNT(AUTO) 2.95 MIL/uL (4.50-6.20); RED CELL DISTRIBUTION WIDTH 20.5 % (11.0-15.5); WHITE BLOOD COUNT (AUTO) 29.9 K/uL (4.8-10.8)
[2019-11-05 06:09] LABS: BILIRUBIN,TOTAL 0.7 mg/dL (0.2-1.0); CREATININE 1.8 mg/dL (0.5-1.5); MAGNESIUM 2.6 mg/dL (1.80-2.40); PHOSPHORUS 4.6 mg/dL (2.5-4.9); POTASSIUM 4.3 mmol/L (3.5-5.1); TOTAL PROTEIN, SERUM 5.9 g/dL (6.0-8.3)
--- NOTE | 2019-11-05 06:35 | NUR ---
Temp Pt with low temp, skin cool to touch. Bear hhugger applied. TF held due to residual greater that 100cc. Placed in prone position at 0140
[2019-11-05] MEDS: PANTOPRAZOLE 40 MG/VIAL IVP SCH (09:47)
[2019-11-05] MEDS: VANCOMYCIN 750MG + NS 250 ML IV SCH ×2 (10:49)
[2019-11-05] MEDS: MIDAZOLAM 50MG-0.9% NS 50ML 50 ML BAG IV SCH (11:03)
[2019-11-05] MEDS ORDERED: FUROSEMIDE 10 MG/ML 4ML VIAL ONE (17:26)
[2019-11-05 20:06] LABS: ABG BASE EXCESS -7.8 mmol/L (-2.0-3.0); ABG HCO3 20.6 mmol/L (21.0-28.0); ABG OXYGEN SATURATION 80.9 % (95.0-99.0); ABG PCO2 54 mmHg (35-48)
[2019-11-05] MEDS ORDERED: SODIUM BICARB 50MEQ 50ML VIAL ONE (20:26)
[2019-11-05] MEDS ORDERED: SODIUM BICARB 8.4% 50ML SYRING 200 MEQ in DEXTROSE 5%-WATER 800 ML IV SCH (20:30)
[2019-11-05] MEDS ORDERED: SODIUM BICARB 8.4% 50ML SYRINGE IVP SCH (20:30)
[2019-11-05] MEDS: FUROSEMIDE 10 MG/ML 4ML VIAL IV SCH (20:52)
--- NOTE | 2019-11-05 23:01 | NUR ---
New orders 60mg of Lasix ordered IVP the q 8 hrs. ABGss obtained after 2 hours. Results called to proposition player MD. 2 amps of Sodium BiCarb ordered along with 4 amps in 1L of D5 to infuse at 60mL/hr. Vent settings changed to TV 400 Rate 28 PEEP 14 and FiO2 at 100%. V/S remain within normal limits. Low temp noted-bear hugger placed.
[2019-11-06] VITALS (74 sets, daily range): BP systolic 68–140; BP diastolic 34–67
[2019-11-06] MEDS: FENTANYL 2500MCG+NS 250ML 250 ML IV PRN ×2 (01:25→03:58)
[2019-11-06] MEDS: HYDROCORTISONE SOD SUCCINATE 100 MG/2 ML VIAL IV SCH ×4 (01:26→23:17)
[2019-11-06] MEDS: FUROSEMIDE 10 MG/ML 4ML VIAL IV SCH (01:27)
[2019-11-06] MEDS: SULFAMETHOX-TMP DS 800/160 TAB PEG SCH ×2 (07:54→20:32)
[2019-11-06] MEDS: MEROPENEM 1 GM VIAL IVP SCH ×2 (07:54→20:32)
[2019-11-06] MEDS ORDERED: FLUCONAZOLE 400 MG/NS 200 ML 200 ML IV SCH (10:15)
[2019-11-06] MEDS ORDERED: RENAL DOSE IV PRN (10:15)
[2019-11-06] MEDS ORDERED: FLUCONAZOLE 200 MG/NS 100 ML 100 ML IV SCH (10:30)
[2019-11-06] MEDS: DEXTROSE 5%-WATER 1,000 ML IV SCH ×2 (10:33→23:35)
[2019-11-06] MEDS: PANTOPRAZOLE 40 MG/VIAL IVP SCH (10:34)
[2019-11-06] MEDS: NOREPINEPHRINE 4MG/NS 250ML 250 ML IV SCH (11:47)
[2019-11-06] MEDS ORDERED: COMPOUND IV MISC 1 EACH IVSOLN MISC PRN (12:45)
--- NOTE | 2019-11-06 14:32 | NUR ---
ENRIQUE CASTILLO CALLED [facility] TO SEE IF OKAY TO TRANSFER TO [facility] [place]. SAID NOT STABLE. VENTED INCREASING WBC, FULL CODE. Addendum: 11/06/19 at 1433 by LEVI RICHARD RN CM Amended: Links added.
[2019-11-06] MEDS ORDERED: FUROSEMIDE 10 MG/ML 2ML VIAL IVP SCH (17:15)
[2019-11-06] MEDS ORDERED: NOREPINEPHRINE BITARTRATE 32 MG in SODIUM CHLORIDE 0.9% 250 ML IV PRN (20:45)
[2019-11-07] VITALS (22 sets, daily range): BP systolic 82–118; BP diastolic 34–51
[2019-11-07 04:07] LABS: BASOPHILS % (AUTO) 0.2 % (0.0-5.0); HEMATOCRIT 31.9 % (42-54); LYMPHOCYTES % (AUTO) 3.7 % (21.0-51.0); MEAN CORPUSCULAR HEMOGLOBIN 31.6 pg (27.0-33.0); MEAN CORPUSCULAR HGB CONC 30.7 g/dL (32.0-36.0); MEAN CORPUSCULAR VOLUME 102.9 fL (79-99); MONOCYTES % (AUTO) 1.7 % (3.0-13.0); NEUTROPHILS % (AUTO) 93.5 % (40.0-77.0); NUCLEATED RED BLOOD CELLS 0.6 % (0.0-0.19); PLATELET COUNT (AUTO) 41 K/uL (130-400); RED CELL DISTRIBUTION WIDTH 19.8 % (11.0-15.5)
[2019-11-07 04:17] LABS: BILIRUBIN,TOTAL 0.7 mg/dL (0.2-1.0); CREATININE 2.6 mg/dL (0.5-1.5); POTASSIUM 4.2 mmol/L (3.5-5.1); TOTAL PROTEIN, SERUM 5.8 g/dL (6.0-8.3)
[2019-11-07 04:24] LABS: WHITE BLOOD COUNT (AUTO) 30.8 K/uL (4.8-10.8)
[2019-11-07 04:33] LABS: CRP QUANTITATIVE 409.7 mg/L (0.00-9.0)
[2019-11-07 04:56] LABS: BAND NEUTROPHILS % (MANUAL) 4 % (0-2); LYMPHOCYTES % (MANUAL) 2 % (22-44); MAN.DIFF COMMENT-IMPRESSION MANUAL DIFFERENTIAL; MONOCYTES % (MANUAL) 1 % (2-9); SEGMENTED NEUTROPHILS % 93 % (40-70)
[2019-11-07 05:09] LABS: ABG BASE EXCESS -6.5 mmol/L (-2.0-3.0); ABG HCO3 22.7 mmol/L (21.0-28.0); ABG OXYGEN SATURATION 79.3 % (95.0-99.0); ABG PCO2 61 mmHg (35-48)
[2019-11-07] MEDS: HYDROCORTISONE SOD SUCCINATE 100 MG/2 ML VIAL IV SCH ×2 (05:52→11:09)
[2019-11-07] MEDS ORDERED: LEVOFLOXACIN 250 MG/D5W 50ML 50 ML IV SCH (06:15)
[2019-11-07] MEDS: FLUCONAZOLE 100 MG/NS 50 ML IV SCH (10:37)
[2019-11-07] MEDS: PANTOPRAZOLE 40 MG/VIAL IVP SCH (10:38)
[2019-11-07] MEDS: MEROPENEM 1 GM VIAL IVP SCH ×2 (10:38→20:23)
[2019-11-07] MEDS: DEXTROSE 5%-WATER 1,000 ML IV SCH (11:09)
--- NOTE | 2019-11-07 11:36 | NUR ---
pt condition notification Lesia [place] NP notified of pt's decreasing SpO2, currently 80-83%. No new orders.
--- NOTE | 2019-11-07 15:04 | NUR ---
RD UPDATE/FOLLOW UP No available functioning feeding pump. Recommend initiate [place] Feedings at low rate. Goal: 1000mL/day of Nepro tube feeding formula. Attempt to contact RN x2 - unavailable. RD to follow up.
--- NOTE | 2019-11-07 16:00 | NUR ---
Documentation completed Completed admission database, family and patient history. Information was given by Lisbeth Wilson ().
[2019-11-07 17:35] LABS: ABG BASE EXCESS -7.3 mmol/L (-2.0-3.0); ABG HCO3 18.9 mmol/L (21.0-28.0); ABG OXYGEN SATURATION 89.4 % (95.0-99.0); ABG PCO2 40 mmHg (35-48)
--- NOTE | 2019-11-07 19:50 | NUR ---
CODE STATUS PT NOW DNR (SEE ORDERS). RIGHTS OF PASSAGE NOW COMPLETE. CARE CONTINUES
[2019-11-07] MEDS: FENTANYL 2500MCG+NS 250ML 250 ML IV PRN ×2 (20:47→22:23)
[2019-11-07] MEDS: MIDAZOLAM 50MG-0.9% NS 50ML 50 ML BAG IV SCH (20:47)
[2019-11-08] VITALS (36 sets, daily range): BP systolic 75–134; BP diastolic 27–67
[2019-11-08] MEDS: HYDROCORTISONE SOD SUCCINATE 100 MG/2 ML VIAL IV SCH ×2 (00:30→13:19)
[2019-11-08] MEDS ORDERED: INSULIN HUMULIN R 100 UNIT/ML 3ML SQ SCH ×2 (00:45→04:00)
[2019-11-08] MEDS ORDERED: INSULIN HUMULIN R 100 UNIT/ML 3ML ONE (00:50)
[2019-11-08] MEDS: DEXTROSE 5%-WATER 1,000 ML IV SCH (02:15)
[2019-11-08 04:04] LABS: BASOPHILS % (AUTO) 0.2 % (0.0-5.0); HEMATOCRIT 23.7 % (42-54); LYMPHOCYTES % (AUTO) 5.8 % (21.0-51.0); MEAN CORPUSCULAR HEMOGLOBIN 31.7 pg (27.0-33.0); MEAN CORPUSCULAR HGB CONC 30.8 g/dL (32.0-36.0); MONOCYTES % (AUTO) 1.4 % (3.0-13.0); NEUTROPHILS % (AUTO) 91.4 % (40.0-77.0); NUCLEATED RED BLOOD CELLS 0.4 % (0.0-0.19); PLATELET COUNT (AUTO) 40 K/uL (130-400); RED CELL DISTRIBUTION WIDTH 19.8 % (11.0-15.5)
[2019-11-08 04:19] LABS: WHITE BLOOD COUNT (AUTO) 32.4 K/uL (4.8-10.8)
[2019-11-08] MEDS: INSULIN HUMULIN R 100 UNIT/ML 3ML SQ SCH ×3 (04:20→18:00)
[2019-11-08 04:25] LABS: CREATININE 3.1 mg/dL (0.5-1.5); POTASSIUM 4.8 mmol/L (3.5-5.1)
--- NOTE | 2019-11-08 08:00 | NUR ---
PT NOT TOLERATING ANY TURNING ACTIVITY. MD AWARE OF DECLINING STATUS. SPO2 LOW. AT 100% ON VENTILLATOR
[2019-11-08] MEDS: MEROPENEM 1 GM VIAL IVP SCH (09:27)
[2019-11-08] MEDS: FLUCONAZOLE 100 MG/NS 50 ML IV SCH (09:27)
[2019-11-08] MEDS: PANTOPRAZOLE 40 MG/VIAL IVP SCH (09:27)
--- NOTE | 2019-11-08 16:30 | NUR ---
CALLED DUE TO PTS DETERIORATING CONDITION. PT'S LAST RIGHTS RITUAL PERFORMED LAST SHIFT AND FAMILY IS AWARE.
--- NOTE | 2019-11-08 18:05 | NUR ---
DECLARED BY DR HEDY DENNEY AT THIS TIME.
--- NOTE | 2019-11-08 18:47 | NUR ---
FAMILY, JD, PRIMARY MD CALLED AFTER PTS . EXTUBATED PER DR DENNEY
[2019-11-09] MEDS ORDERED: DEXTROSE 5%-WATER 1,000 ML IV SCH (10:15)
== END 2019-11-08 18:05 | disposition expired | DRG 870 ==
LOC: EDH 10:28 → EDHIP 16:20 → 2CH 10-29 12:31
PROVIDERS: ADMIT Internal Medicine; ATTEND Internal Medicine
PROC: 5A09357 Assistance with Respiratory Ventilation, Less than 24 Consecutive Hours, Continuous Positive Airway Pressure (ICD-10-PCS; 2019-10-28)
PROC: 30233K1 Transfusion of Nonautologous Frozen Plasma into Peripheral Vein, Percutaneous Approach (ICD-10-PCS; 2019-10-28)
PROC: 0BH17EZ Insertion of Endotracheal Airway into Trachea, Via Natural or Artificial Opening (ICD-10-PCS; principal; 2019-10-29)
PROC: 5A1955Z Respiratory Ventilation, Greater than 96 Consecutive Hours (ICD-10-PCS; 2019-10-29)
PROC: 30233N1 Transfusion of Nonautologous Red Blood Cells into Peripheral Vein, Percutaneous Approach (ICD-10-PCS; 2019-10-29)
PROC: 02HV33Z Insertion of Infusion Device into Superior Vena Cava, Percutaneous Approach (ICD-10-PCS; 2019-10-29)
PROC: 5A1D70Z Performance of Urinary Filtration, Intermittent, Less than 6 Hours Per Day (ICD-10-PCS; 2019-10-29)
PROC: 02HV33Z Insertion of Infusion Device into Superior Vena Cava, Percutaneous Approach (ICD-10-PCS; 2019-11-02)
PROC: B5181ZA Fluoroscopy of Superior Vena Cava using Low Osmolar Contrast, Guidance (ICD-10-PCS; 2019-11-02)
PROC: B548ZZA Ultrasonography of Superior Vena Cava, Guidance (ICD-10-PCS; 2019-11-02)
DX: A41.89 Other specified sepsis (principal); U07.1 COVID-19; R65.21 Severe sepsis with septic shock; J12.89 Other viral pneumonia; J96.21 Acute and chronic respiratory failure with hypoxia; N17.0 Acute kidney failure with tubular necrosis; E87.0 Hyperosmolality and hypernatremia; D62 Acute posthemorrhagic anemia; N39.0 Urinary tract infection, site not specified; Z16.24 Resistance to multiple antibiotics; Z99.11 Dependence on respirator [ventilator] status; E87.1 Hypo-osmolality and hyponatremia; Z66 Do not resuscitate; R00.1 Bradycardia, unspecified; E87.5 Hyperkalemia; I25.10 Atherosclerotic heart disease of native coronary artery without angina pectoris; K21.9 Gastro-esophageal reflux disease without esophagitis; F03.90 Unspecified dementia, unspecified severity, without behavioral disturbance, psychotic disturbance, mood disturbance, and anxiety; Y95 Nosocomial condition; G93.89 Other specified disorders of brain; E11.51 Type 2 diabetes mellitus with diabetic peripheral angiopathy without gangrene; B96.89 Other specified bacterial agents as the cause of diseases classified elsewhere; D69.6 Thrombocytopenia, unspecified; E11.22 Type 2 diabetes mellitus with diabetic chronic kidney disease; G40.909 Epilepsy, unspecified, not intractable, without status epilepticus; R68.0 Hypothermia, not associated with low environmental temperature; I12.9 Hypertensive chronic kidney disease with stage 1 through stage 4 chronic kidney disease, or unspecified chronic kidney disease; R74.8 Abnormal levels of other serum enzymes; L98.429 Non-pressure chronic ulcer of back with unspecified severity; N18.9 Chronic kidney disease, unspecified; R13.12 Dysphagia, oropharyngeal phase; Z86.19 Personal history of other infectious and parasitic diseases; Z86.73 Personal history of transient ischemic attack (TIA), and cerebral infarction without residual deficits; Z93.1 Gastrostomy status; Z83.3 Family history of diabetes mellitus
CPT/HCPCS: 31500; 36415; 36430; 36556; 36600; 70450; 71045; 76770; 77001; 80048; 80053; 80076; 80202; 80400; 82010; 82140; 82533; 82550; 82570; 82728; 82803; 82948; 83540; 83550; 83605; 83615; 83735; 83874; 83880; 84100; 84145; 84300; 84439; 84443; 84480; 84481; 84484; 85025; 85027; 85045; 85378; 85610; 85730; 86140; 86850; 86900; 86901; 86922; 87040; 87071; 87077; 87088; 87186; 87205; 93005; 94002; 94003; 94660; 99291; C9113; G0378; J0456; J0696; J1450; J1644; J1720; J1815; J1940; J1956; J2185; J2250; J2405; J2543; J3010; J3370; J3490; J7040; J7050; J7070; P9016; U0003